=== PATIENT | female | born 1995 | race Caucasian/White ===

== ENCOUNTER 2018-08-05 20:18 | Inpatient (IN) | END 2018-08-07 17:00 | disposition home or self-care (01) | DRG 832 ==

== ENCOUNTER 2018-08-24 12:23 | Inpatient (IN) | payer OTHER ==
[~2018-08-24] VITALS: Ht 154.9 cm; Wt 66.4 kg
[~2018-08-24 12:23] MED LIST: PREN-29 PO
[2018-08-24 12:45] VITALS: Ht 154.9 cm; Wt 66.4 kg
[2018-08-24 12:46] VITALS: BP 129/78; PULSE 81; RESP 17
[2018-08-24] MEDS ORDERED: ACETAMINOPHEN 325 MG TAB PO PRN (17:00)
--- NOTE | 2018-08-24 17:24 | PN ---
Triage Information Date/Time Aug 24, 2018 at 15:20 Reason for visit: Elevated Blood pressure Weeks of Gestation 32 weeks and 2 days /Para Diabetes: none Hypertention: none Additional information 23 years old with IUP at 32 weeks and 2 days was sent from the clinic today due to slightly elevated diastolic BP noted in the office Denies any LOF, vaginal bleeding, decreased movement or contraction Denies any headache, blurred vsion,, epigastric pain or RUQ pain . Objective Vital Signs Date Temp Pulse Resp B/P (MAP) Pulse Ox O2 O2 Flow FiO2 Time Delivery Rate 08/24/18 98.7 81 17 129/78 Room Air 12:46 (95) Heart Rate Comments Recurrent variables noted with recovery over 45 seconds Cat 2 tracing Contractions: None Results/Medications Result Diagram: 08/24/18 1321 08/24/18 1321 Results 24 hrs Laboratory Tests Test 08/24/18 13:00 08/24/18 13:21 Urine Color YELLOW Urine Clarity CLOUDY A Urine pH 5.0 Urine Specific [place] 1.021 Urine Ketones NEGATIVE Urine Nitrite NEGATIVE Urine Bilirubin NEGATIVE Urine Urobilinogen 1+ H Urine Leukocyte Esterase 3+ H Urine Microscopic RBC 57 H Urine Microscopic WBC > 182 H Urine Squamous Epithelial Cells MANY A Urine Bacteria FEW A Urine Mucus FEW A Urine Hemoglobin 1+ H Urine Glucose NEGATIVE Urine Total Protein NEGATIVE White Blood Count 5.9 Red Blood Count 3.83 L Hemoglobin 10.2 L Hematocrit 31.6 L Mean Corpuscular Volume 82.5 Mean Corpuscular Hemoglobin 26.6 L Mean Corpuscular Hemoglobin Concent 32.3 Red Cell Distribution Width 12.8 Platelet Count 241 Mean Platelet Volume 10.9 H Immature Granulocytes % 2.700 H Neutrophils % 57.1 Lymphocytes % 32.0 Monocytes % 7.2 Eosinophils % 0.7 Basophils % 0.3 Nucleated Red Blood Cells % 0.7 H Immature Granulocytes # 0.160 H Neutrophils # 3.3 Lymphocytes # 1.9 Monocytes # 0.4 Eosinophils # 0.0 Basophils # 0.0 Nucleated Red Blood Cells # 0.0 Prothrombin Time 11.0 L Prothrombin Time Ratio 0.9 INR International Normalized Ratio 0.78 Activated Partial Thromboplast Time 27.4 Sodium Level 138 Potassium Level 4.4 Chloride Level 107 Carbon Dioxide Level 23 Anion Gap 8 Blood Urea Nitrogen 12 Creatinine 0.80 Est Glomerular Filtrat Rate mL/min > 60 Glucose Level 87 Uric Acid 5.3 Calcium Level 8.6 Total Bilirubin 0.0 L Direct Bilirubin 0.00 Indirect Bilirubin 0.0 Aspartate Amino Transf (AST/SGOT) 25 Alanine Aminotransferase (ALT/SGPT) 23 Alkaline Phosphatase 258 H Total Protein 6.2 Albumin 3.1 L Globulin 3.10 Albumin/Globulin Ratio 1.00 Medications Current Medications Lactated Ringer's 1,000 ml @ 75 mls/hr [id number] IV ; Start 08/24/18 at 16:51 Acetaminophen (Tylenol Tab) 650 mg Q4H PRN PO MILD PAIN(1-3)OR ELEVATED TEMP; Start 08/24/18 at 17:00 Cephalexin (Keflex) 500 mg TID PO ; Start 08/24/18 at 21:00 Prenat Multivit/ [place]/Iron/Folic Ac () 1 tab DAILY PO ; Start 08/25/18 at 09:00 Imaging Results PROCEDURE: US OB biophysical profile. CLINICAL INDICATION: decreased movements, decelerations TECHNIQUE: Multiple sonographic images of the pelvis were obtained. The images were reviewed on a PACS workstation. COMPARISON: US PELVIS 08/05/2018 FINDINGS: There is a single live intrauterine gestation. Cardiac activity is present with 161 beats per minute. There is a vertex presentation. The placenta is posterior. There is no evidence of placental abruption. There is a normal amount of amniotic fluid with an TERENCE = 11.4 cm. Biophysical profile: movement 2/2 tone 2/2. breathing 2/2 TERENCE 2/2 Total 8/8 RPTAT: AA . IMPRESSION: Normal biophysical profile. . PROCEDURE: Obstetrical ultrasound. CLINICAL INDICATION: , evaluation. Pelvic pain. TECHNIQUE: Transabdominal sonographic images of the uterus obtained after first trimester, greater than 14 weeks gestation. Single intrauterine gestation present. Complete anatomic survey is not performed in this ex amination; if needed an additional dedicated examination can be performed for complete anatomic survey. COMPARISON: US PELVIS 08/24/2018 FINDINGS: Single intrauterine gestation. There is a cephalic presentation. Measurements were made in order to determine age. The results are as fo llows: BPD = 32 weeks 2 day(s) HC = 31 weeks 6 day(s) AC = 30 weeks 0 day(s) FL = 30 weeks 2 day(s) TERENCE (cm) = not measured Heart rate = 146 beats per minute The placenta is posterior. There is no evidence for an abruption or placenta previa. Ovaries are not visualized. IMPRESSION: Single intrauterine gestation of approximately 31 weeks 1 days by ultrasound criteria. [place] estimated weight = 1580 g; 4.5 percentile for gestational age of 32 weeks 2 days. RPTAT: AADD Disposition: Admit Assessment/Plan IUP at 32 weeks and 2 days Borderline elevated diastolic blood pressure noted during office visit. Patient was sent for rule out PIH. Patient denies any symptoms and serial blood pressure here in triage did not show elevated blood pressure in the range of preeclampsia. Patient was asymptomatic and PIH panel was negative. However during monitoring recurrent variable deceleration noted was consistent with category 2 tracing Ultrasound consistent with IUGR estimated weight less than 4.5 percentile, Patient will be admitted to the hospital for prolonged monitoring primary OB attending Dr. Alicia is aware. Consider steriods and perinatology/neonatology consultation Plan of care discussed with the patient Admitted to antepartum service Continuous monitoring BASHIR DEVI MD Aug 24, 2018 17:24
[2018-08-24] MEDS: LACTATED RINGER'S 1,000 ML IV SCH (18:32)
[2018-08-24] MEDS: BETAMET NA PHOS/AC(6 MG/ML) 2 ML INJ SYG IM SCH (18:33)
[2018-08-24] MEDS: CEPHALEXIN 500 MG CAP PO SCH (21:54)
--- NOTE | 2018-08-25 01:47 | CONS ---
DATE OF ADMISSION: 08/24/2018 DATE OF CONSULTATION: 08/24/2018 I received a phone call from Dr. Alicia about a patient who was admitted for increased blood pres sure. Dr. Neves evaluated the patient and was concerned about the strip. I did review the strip. There are ____ of variables; however, in the context of overall strip, it is reassuring. I do recom mend that TERENCE to be checked and again if any further question or consult intended or necessary, pleas e contact me for a full consult. Dictated By: AMERICA RANDOLPH MD ST/NTS Conf#: [id number] DID#: [id number]
[2018-08-25] MEDS: LACTATED RINGER'S 1,000 ML IV SCH ×2 (06:07→19:44)
[2018-08-25] MEDS: BETAMET NA PHOS/AC(6 MG/ML) 2 ML INJ SYG IM SCH (06:07)
--- NOTE | 2018-08-25 08:17 | HP ---
Date/Time of Note Date/Time of Note DATE: 08/25/18 TIME: 08:09 OB - History Hx of Present Free Text/Dictation 23 YO with IUP at 32.3 weeks. she was referred to L&D due to elevated BP in office. she denies VB, LOF per vagina or UCs. she reports good FM. she denies headache, visual changes or RUQ pain. she has normal BPs in L&D, but BPs were checked in the bed and not in sitting position. BPs in hospital are higher than her baseline during PNC. she has normal labs and already had steroids. her previous was complicated by h/o HELLP syndrome at 33 weeks. she had c/s. this is complicated by IUGR, elevated inhibin and hypothyroidism. NST is overall reassuring and i am comfortable doing NST and not continuous monitoring. Care: Good Care Ultrasounds: Normal mid trimester US Obstetrical Complications: Growth Restriction, Other (elevated inhibin) Medical Complications: Other (hypothyroid) Past Family/Social History * Past Medical, Surgical, Family and Obstetric Histories reviewed from chart. OB Admission Exam Vital Signs Vital Signs Vital Signs Date Temp Pulse Resp B/P (MAP) Pulse Ox O2 O2 Flow FiO2 Time Delivery Rate 08/24/18 98.7 81 17 129/78 Room Air 12:46 (95) Physical Exam HEENT: WNL Heart: Rhythm Normal Lungs: Clear, Equal Abdomen: WNL Extremities: Normal Reflexes: Normal Last 72 hours Lab Results CBC & BMP 08/24/18 13:21 Liver Function Test 08/24/18 13:21 Alanine Aminotransferase (ALT/SGPT) 23 Albumin 3.1 L Alkaline Phosphatase 258 H Aspartate Amino Transf (AST/SGOT) 25 Direct Bilirubin 0.00 Total Protein 6.2 OB Assessment/Plan Other Assessment: IUP at 32.3 weeks IUGR r/o Preeclampsia Elevated inhibin h/o HELLP and C/S with previous Other plan: check BPs in sitting position 24 hour urine collection SCARLETT THOMAS MD Aug 25, 2018 08:17
[2018-08-25] MEDS ORDERED: PRENATAL VITAMIN PO SCH (09:00)
[2018-08-25] MEDS: PRENATAL VITAMIN PO SCH (09:19)
[2018-08-25] MEDS: CEPHALEXIN 500 MG CAP PO SCH ×2 (09:20→19:43)
[2018-08-25] MEDS: ASPIRIN (EC) 81 MG TAB PO SCH (11:35)
[2018-08-26] MEDS: CEPHALEXIN 500 MG CAP PO SCH ×4 (00:24→21:13)
[2018-08-26] MEDS: ASPIRIN (EC) 81 MG TAB PO SCH (09:22)
[2018-08-26] MEDS: PRENATAL VITAMIN PO SCH (09:22)
[2018-08-26] MEDS: LACTATED RINGER'S 1,000 ML IV SCH ×2 (09:22→19:54)
--- NOTE | 2018-08-26 15:53 | PN ---
Date/Time of Note Date/Time of Note DATE: 08/26/18 TIME: 15:49 OB Subjective Subjective Subjective Patient denies any headache, blurred vision, epigastric pain or right upper q uadrant pain. I was called by RN due to occasional subtle decelerations and heart tracing. OB Objective Objective Objective General appearance: Oriented x4 does not appear to be in acute distress Abdomen: Soft, gravid, fundal height consider gestational age NST reviewed. There are episodes of subtle decelerations recurrent, with intermittent good variability and acceleration consistent with category 2 tracing BPP requested VS - Last 72 Hours, by Label Date Temp Pulse Resp B/P (MAP) Pulse Ox O2 O2 Flow FiO2 Time Delivery Rate 08/24/18 98.7 81 17 129/78 Room Air 12:46 (95) Laboratory Tests Test 08/25/18 06:07 08/25/18 16:07 08/26/18 05:52 Lab Scanned Report [facility] [id number] Urine Random Creatinine 55.25 mg/dl Urine Collection 24 hrs Duration Urine Total Volume 24 1925 ml/24hrs Hours Urine Creatinine Timed 24 hrs Creatinine Clearance 92.3 mls/min Urine Total Volume 1925 mls (Protein) Urine Total Protein 24 693.0 mg/24hrs Hour White Blood Count 9.2 10^3/ul Red Blood Count 3.46 10^6/ul Hemoglobin 9.1 g/dl Hematocrit 28.8 % Mean Corpuscular Volume 83.2 fl Mean Corpuscular 26.3 pg Hemoglobin Mean Corpuscular 31.6 g/dl Hemoglobin Concent Red Cell Distribution 12.9 % Width Platelet Count 258 10^3/UL Mean Platelet Volume 10.8 fl Immature Granulocytes % 4.100 % Neutrophils % 64.7 % Lymphocytes % 25.2 % Monocytes % 5.8 % Eosinophils % 0.0 % Basophils % 0.2 % Nucleated Red Blood 1.4 /100WBC Cells % Immature Granulocytes # 0.380 10^3/ul Neutrophils # 6.0 10^3/ul Lymphocytes # 2.3 10^3/ul Monocytes # 0.5 10^3/ul Eosinophils # 0.0 10^3/ul Basophils # 0.0 10^3/ul Nucleated Red Blood 0.1 10^3/ul Cells # Sodium Level 137 mmol/L Potassium Level 4.4 mmol/L Chloride Level 110 mmol/L Carbon Dioxide Level 23 mmol/L Anion Gap 4 Blood Urea Nitrogen 11 mg/dl Creatinine 0.70 mg/dl Est Glomerular Filtrat > 60 mL/min Rate mL/min Glucose Level 103 mg/dl Calcium Level 8.3 mg/dl Total Bilirubin 0.0 mg/dl Direct Bilirubin 0.00 mg/dl Indirect Bilirubin 0.0 mg/dl Aspartate Amino 26 IU/L Transf (AST/SGOT) Alanine 22 IU/L Aminotransferase (ALT/SG PT) Alkaline Phosphatase 232 IU/L Total Protein 5.6 g/dl Albumin 2.7 g/dl Globulin 2.90 g/dl Albumin/Globulin Ratio 0.93 OB Assessment/Plan Other Assessment: Hospital day #2 Presented for rule out PIH from the office. Blood pressures are all within normal limits. PIH labs are negative. There is proteinuria, he is on only proteinuria does not meet the criteria for preeclampsia at this time UTI, receiving treatment with Keflex Recurrent subtle deceleration consistent with category 2 tracing, Ultrasound shows IUGR, estimated weight less than 4.5 percentile Cannot rule out placental insufficiency Recommended to have a Doppler of umbilical artery NICU and kylah consilt. Consider Reconsult with perinatologist BASHIR DEVI MD Aug 26, 2018 15:53
[2018-08-27] MEDS: CEPHALEXIN 500 MG CAP PO SCH (09:14)
[2018-08-27] MEDS: ASPIRIN (EC) 81 MG TAB PO SCH (09:14)
[2018-08-27] MEDS: LACTATED RINGER'S 1,000 ML IV SCH (09:14)
[2018-08-27] MEDS: PRENATAL VITAMIN PO SCH (09:14)
[2018-08-27] MEDS ORDERED: LACTATED RINGER'S 1,000 ML IV SCH (11:47)
[2018-08-27] MEDS ORDERED: CITRIC ACID/NA CITRATE 30 ML CUP PO ONE (12:00)
[2018-08-27] MEDS ORDERED: ONDANSETRON 4 MG INJ IV STA (12:00)
[2018-08-27] MEDS ORDERED: OXYTOCIN 30 UNITS/LR 500 ML IV PRN ×2 (12:00→13:00)
[2018-08-27] MEDS ORDERED: MISOPROSTOL 200 MCG TAB PR PRN ×2 (12:00→13:00)
[2018-08-27] MEDS ORDERED: METOCLOPRAMIDE 10 MG INJ IV ONE (12:00)
[2018-08-27] MEDS ORDERED: FAMOTIDINE 20 MG INJ IV ONE (12:00)
[2018-08-27] MEDS ORDERED: CEFAZOLIN 2 GM/50 ML (PMX) 50 ML IVPB SCH (12:00)
[2018-08-27] MEDS ORDERED: CARBOPROST 250 MCG INJ IM PRN ×2 (12:00→13:00)
--- NOTE | 2018-08-27 12:41 | PREAC ---
Date/Time of Note Date/Time of Note DATE: 08/27/18 TIME: 12:40 Anesthesia Eval and Record Evaluation Time Pre-Procedure Interview DATE: 08/27/18 TIME: 12:40 Age 23 Sex female NPO: 8 hrs Preoperative diagnosis Planned procedure repeat cs Past Medical History Past Medical History: Includes Cardio: HTN Surgery & Anesthesia Issues No known issue Meds Anticoagulation: No Beta Valentín within 24 hr: No Reason Beta Valentín not given: Pt. not on B-Valentín Reported Medications Vit-Fe Fumarate-FA* (Mathieu Tablet*) 1 Tab Tablet, 1 TAB PO DAILY, TAB 07/18/14 Current Medications Lactated Ringer's 1,000 ml @ 125 mls/hr Q8H IV ; Start 08/27/18 at 11:47 Cefazolin Sodium/ Dextrose 50 ml @ 100 mls/hr ONCE IVPB ; Start 08/27/18 at 12:00 Oxytocin/Lactated Ringer's 500 ml @ 125 mls/hr POST IV ; Start 08/27/18 at 12:00 Oxytocin/Lactated Ringer's 500 ml @ 0 mls/hr ONCE PRN IV VAGINAL BLEEDING; Start 08/27/18 at 12:00 Carboprost Tromethamine (Hemabate) 250 mcg ONCE PRN IM VAGINAL BLEEDING; Start 08/27/18 at 12:00 Misoprostol (Cytotec) 1,000 mcg ONCE PRN AR VAGINAL BLEEDING; Start 08/27/18 at 12:00 Meds reviewed: Yes Allergies Coded Allergies: No Known Allergy (Unverified , 08/05/18) Allergies Reviewed: Yes Labs/Studies Labs Reviewed: Reviewed by anesthesiologist Result Diagram: 08/27/18 0544 08/27/18 0544 Laboratory Tests 08/27/18 05:44 test: Positive Pre-procedure Exam Last vitals Vital Signs Date Temp Pulse Resp B/P (MAP) Pulse Ox O2 O2 Flow FiO2 Time Delivery Rate 08/24/18 98.7 81 17 129/78 Room Air 12:46 (95) Airway: Adequate mouth opening, Adequate thyromental dist Mallampati: Mallampati II Teeth: Normal Lung: Normal Heart: Normal ASA Physical Status ASA physical status: 2 Emergency: None Planned Anesthetic Neuraxial: Spinal Pre-operative Attestations Prior to commencing anesthesia and surgery, the patient was re-evaluated, there was verification of: *The patient's identity *The results of appropriate recent lab work and preoperative vital signs *The above evaluation not changing prior to induction *Anesthetic plan, risk benefits, alternative and complications discussed with patient/family; questions answered; patient/family understands, accepts and wishes to proceed. JOSSIE SIEGEL Aug 27, 2018 12:41
--- NOTE | 2018-08-27 12:42 | HP ---
Date/Time of Note Date/Time of Note DATE: 08/27/18 TIME: 12:33 OB - History Hx of Present Free Text/Dictation 23 YO with EDC 10/17/2018 with IUP at 32.5 weeks. she was admitted to hospital for preeclampsia, IUGR, Variable decelerations and h/o HELLP syndrome with previous . NST reveals worsening repeated prolonged and variable decelerations. Her BPs today are also higher than previous days, although still in mild range. the intention was to prolong the , but we need to proceed with repeat delivery due to recurrent decelerations. I discussed with the patient the risks, benefits, indications, and alternatives of procedure including but not limited to risks of infection, bleeding, damage to other organs, bowel, bladder, hernia formation, scar formation, possibility of blood transfusion, possible need for emergency hysterectomy and risks of prematurity including permanent physical or mental disabilities or . She was allowed to ask questions. All her questions were answered. Informed consent has been obtained. Care: Good Care Ultrasounds: Normal mid trimester US Obstetrical Complications: Pre-eclampsia, Growth Restriction Medical Complications: None Past Family/Social History * Past Medical, Surgical, Family and Obstetric Histories reviewed from chart. OB Admission Exam Vital Signs Vital Signs Vital Signs Date Temp Pulse Resp B/P (MAP) Pulse Ox O2 O2 Flow FiO2 Time Delivery Rate 08/24/18 98.7 81 17 129/78 Room Air 12:46 (95) Physical Exam HEENT: WNL Heart: Rhythm Normal Lungs: Clear, Equal Abdomen: WNL Extremities: Normal Reflexes: Normal Last 72 hours Lab Results CBC & BMP 08/24/18 13:21 08/26/18 05:52 08/27/18 05:44 Liver Function Test 08/24/18 13:21 08/26/18 05:52 08/27/18 05:44 Alanine Aminotransferase (ALT/SGPT) 23 22 29 Albumin 3.1 L 2.7 L 2.5 L Alkaline Phosphatase 258 H 232 H 212 H Aspartate Amino Transf (AST/SGOT) 25 26 26 Direct Bilirubin 0.00 0.00 0.00 Total Protein 6.2 5.6 L 5.3 L OB Assessment/Plan Other Assessment: IUP 32.5 weeks Preeclampsia Elevated Inhibin IUGR Recurrent worsening prolonged decelerations h/o previous for HELLP syndrome at 33 weeks Plan: Section SCARLETT THOMAS MD Aug 27, 2018 12:42
[2018-08-27] MEDS ORDERED: LACTATED RINGER'S 1,000 ML IV* SCH (12:43)
[2018-08-27] MEDS ORDERED: DIPHENHYDRAMINE 50 MG INJ IV PRN ×3 (13:00)
[2018-08-27] MEDS ORDERED: WITCH HAZEL/GLYCERIN PAD PR PRN (13:00)
[2018-08-27] MEDS ORDERED: SENNA/DOCUSATE NA (8.6MG/50MG) TAB PO PRN (13:00)
[2018-08-27] MEDS ORDERED: FENTAnyl 50 MCG/ML VIAL IV PRN ×2 (13:00)
[2018-08-27] MEDS ORDERED: HYDROmorphONE 0.5 MG/0.5 ML SYG IV PRN ×2 (13:00)
[2018-08-27] MEDS ORDERED: KETOROLAC 30 MG INJ IV PRN ×2 (13:00)
[2018-08-27] MEDS ORDERED: NA PHOSPHATE/BIPHOS 133 ML ENEMA PR PRN (13:00)
[2018-08-27] MEDS ORDERED: ONDANSETRON 4 MG TAB PO PRN (13:00)
[2018-08-27] MEDS ORDERED: DIPHENHYDRAMINE 25 MG CAP PO PRN (13:00)
[2018-08-27] MEDS ORDERED: HYDROmorphONE 1 MG/5 ML IV SYRINGE IV PRN ×2 (13:00)
[2018-08-27] MEDS ORDERED: ONDANSETRON 4 MG INJ IV PRN ×2 (13:00)
[2018-08-27] MEDS ORDERED: DIBUCAINE 1% 30 GM OINT TOP PRN (13:00)
[2018-08-27] MEDS ORDERED: ALBUTEROL 0.083% (NEB) 2.5 MG/3 ML AMP HHN PRN (13:00)
[2018-08-27] MEDS ORDERED: LANOLIN HPA 1 PKT TOP PRN (13:00)
[2018-08-27] MEDS ORDERED: METOCLOPRAMIDE 10 MG INJ IV PRN (13:00)
[2018-08-27] MEDS ORDERED: NALOXONE (0.4 MG/ML) INJ IV PRN (13:00)
[2018-08-27] MEDS ORDERED: HYDROCODONE/APAP (5/325) TAB PO PRN ×2 (13:00)
[2018-08-27] MEDS ORDERED: BENZOCAINE 20% 56 ML SPRAY TOP PRN (13:00)
[2018-08-27] MEDS ORDERED: MAGNESIUM HYDROXIDE 30ML CUP PO PRN (13:00)
--- NOTE | 2018-08-27 14:20 | OPR ---
Date/Time of Note Date/Time of Note DATE: 08/27/18 TIME: 14:16 Operative Report Procedure Date: Aug 27, 2018 Preoperative Diagnosis IUP 32.5 weeks Preeclampsia IUGR Repetitive prolonged decelerations h/o prior delivery due to HELLP syndrome Postoperative Diagnosis same Operation/Procedure Performed Repeat delivery Surgeon Christiano Alicia MD Gas Engine Operator Edmund Verdin MD Anesthesia Type: spinal Estimated Blood Loss: other (700 ml) Transfusion none Specimen Placenta Grafts/Implants none Tubes/Drains Ma Cath Complications none Pt Condition Post Procedure: stable Disposition: PACU Procedure Description COMPLICATIONS: None. The risks, benefits, indications, alternatives of procedure including, but not limited to risk of infection, bleeding, damage to other organs, bowel, bladder, hernia formation, scar formation, possibility of blood transfusions. She was allowed to ask questions. All her questions were answered. Informed consent was obtained. DESCRIPTION OF PROCEDURE: She was taken to the operating room. Spinal anesthesia was induced. She was prepped and draped in the usual sterile fashion. Surgical time out one. Anesthesia was tested to be adequate. With permission from anesthesiologist, a knife was used to make a Pfannenstiel skin incision. The incision was taken down in layers. The fascia was cut, undermined and from the underlying muscle using sharp and blunt dissection. All the bleeders were cauterized. Peritoneum was entered bluntly. A low transverse incision was developed over the uterus. Amniotic fluid was clear and adequate. A viable in vertex presentation was delivered without any difficulty. The cord was clamped and cut, handed to awaiting team. Placenta was then delivered. Uterus was exteriorized, wrapped around a moist lap. Inside uterus was cleaned using a dry lap. All residual membranes were removed. The uterine incision was then closed using #1 Monocryl in 2 layers. The uterus was inserted back inside the abdominal cavity. Irrigation was done carefully. Careful evaluation of the uterine incision revealed no further bleeding. The tubal ligation sites were evaluated carefully. There was no bleeding. The peritoneum and rectus muscles and fascia were evaluated. All bleeders cauterized. Peritoneum was closed using 2-0 Monocryl. At this time, the count was correct. Rectus muscle was reapproximated using 2-0 Monocryl. Rectus fascia was closed using #1 Vicryl. Subcutaneous tissue was cleaned and irrigated. All bleeders cauterized and the skin closed using Insorb. All counts correct. CHRISTIANO ALICIA MD Aug 27, 2018 14:20
[2018-08-27] MEDS: OXYTOCIN 30 UNITS/LR 500 ML IV SCH ×2 (14:50→20:20)
[2018-08-27] MEDS: LABETALOL 200 MG TAB PO PRN (15:44)
[2018-08-27] MEDS ORDERED: MAGNESIUM SULFATE 4 GM/100 ML 100 ML IV ONE (16:30)
--- NOTE | 2018-08-27 16:45 | CONS ---
Date/Time of Note Date/Time of Note DATE: 08/27/18 TIME: 16:42 Assessment/Plan Assessment/Plan Assessment/Plan 23 yo female with pre-eclampsia s/p C section today, now with asymptomatic hypertension - Expected to have some acute hypertension post surgery which will resolve on its own. Not need to treat based off of the number now. 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 I will write for 0.1 mg PO clonidine now Result Diagram: 08/27/18 0544 08/27/18 0544 Results 24hrs Laboratory Tests Test 08/27/18 05:42 08/27/18 05:44 08/27/18 14:03 Hepatitis B Surface Antigen NEGATIVE White Blood Count 8.5 Red Blood Count 3.37 L Hemoglobin 9.0 L Hematocrit 28.6 L Mean Corpuscular Volume 84.9 Mean Corpuscular Hemoglobin 26.7 L Mean Corpuscular 31.5 L Hemoglobin Concent Red Cell Distribution Width 13.1 Platelet Count 245 Mean Platelet Volume 11.2 H Immature Granulocytes % 9.300 H Neutrophils % Segmented Neutrophils 58 % (Manual) Band Neutrophils % (Manual) 2 Lymphocytes % Lymphocytes % (Manual) 37 Monocytes % Monocytes % (Manual) 2 Eosinophils % Basophils % Myelocytes % (Manual) 1 H Nucleated Red Blood Cells % 5 H Immature Granulocytes # 0.790 H Neutrophils # Neutrophils # (Manual) 4.9 Band Neutrophils # 0.1 Lymphocytes (Manual) 3.1 H Lymphocytes # Monocytes # Monocytes # (Manual) 0.1 L Eosinophils # Basophils # Myelocytes # 0.0 Nucleated Red Blood Cells # Platelet Estimate NORMAL Giant Platelets 2 H Polychromasia 1+ Anisocytosis 1+ Microcytosis 1+ Sodium Level 138 Potassium Level 4.3 Chloride Level 110 Carbon Dioxide Level 24 Anion Gap 4 L Blood Urea Nitrogen 12 Creatinine 0.69 Est Glomerular Filtrat > 60 Rate mL/min Glucose Level 82 Calcium Level 8.1 L Total Bilirubin 0.0 L Direct Bilirubin 0.00 Indirect Bilirubin 0.0 Aspartate Amino 26 Transf (AST/SGOT) Alanine 29 Aminotransferase (ALT/SGPT) Alkaline Phosphatase 212 H Total Protein 5.3 L Albumin 2.5 L Globulin 2.80 Albumin/Globulin Ratio 0.89 Blood Gas Specimen Source CBV Arterial Blood Date Drawn 08/27/2018 2:00:42 PM Arterial Blood Gas CORD Puncture Site Cam Test N/A Cord Blood Carboxyhemoglobin 2.1 Cord Arterial Blood pH 7.309 Cord Arterial Blood PCO2 50.0 Cord Arterial Blood PO2 24.1 Cord Arterial Blood HCO3 24.6 Cord Arterial Blood -2.3 Base Excess POC Cord Arterial Blood O2 54.3 Sat Cord Arterial Blood 14.8 Hemoglobin Cord Arterial 52.9 Blood Oxyhemoglobin Cord Arterial 1.6 Blood Methemoglobin Cord Venous Blood pH 7.331 Cord Venous Blood PCO2 46.3 Cord Venous Blood PO2 23.9 Cord Venous Blood HCO3 23.9 Cord Venous Blood Base -2.3 Excess POC Cord Venous Blood 59.2 Oxygen Sat Cord Venous Blood Hemoglobin 14.2 Cord Venous 57.1 Blood Oxyhemoglobin Cord Venous 1.4 Blood Methemoglobin Blood Gas A-a O2 70.4 Differential Blood Gas Temperature 37.0 Blood Gas Modality ROOM AIR FiO2 21.0 Blood Gas Critical Value Ca LYNCH RN Read Back Blood Gas Notified Whom SS Blood Gas Notified Time 08/27/2018 2:10:31 PM Consultation Date/Type/Reason Admit Date/Time Aug 24, 2018 at 15:20 Hx of Present Illness 23 yo female wtih pre-eclampsia s/p C section today. Consulted for hypertension Patient has been given labetalol and hydralazine. Despite this BP currently is 170s/100s. She has no symptoms at all. Resting comfortably Past Medical History Medical History: no pertinent history Medications Current Medications Oxytocin/Lactated Ringer's 500 ml @ 125 mls/hr POST IV ; Start 08/27/18 at 12:00 Naloxone HCl (Narcan) 0.1 mg Q2M PRN IV DECREASED REPIRATORY RATE; Start 08/27/18 at 13:00; Stop 08/28/18 at 12:59 Ketorolac Tromethamine (Toradol) 30 mg Q6H PRN IV PAIN; Start 08/27/18 at 13:00; Stop 08/28/18 at 12:59 Hydromorphone HCl (Dilaudid) 0.2 mg Q3H PRN IV PAIN LEVEL 1-5; Start 08/27/18 at 13:00; Stop 08/28/18 at 12:59 Hydromorphone HCl (Dilaudid) 0.4 mg Q3H PRN IV PAIN LEVEL 6-10; Start 08/27/18 at 13:00; Stop 08/28/18 at 12:59 Diphenhydramine HCl (Benadryl) 25 mg Q6H PRN IV ITCHING; Start 08/27/18 at 13:00; Stop 08/28/18 at 12:59 Ondansetron HCl (Zofran Inj) 4 mg Q6H PRN IV NAUSEA AND/OR VOMITING; Start 08/27/18 at 13:00; Stop 08/28/18 at 12:59 Hydromorphone HCl (Dilaudid) 0.2 mg PACU PRN IV MILD PAIN LEVEL 1-3; Start 08/27/18 at 13:00; Stop 08/27/18 at 17:00 Hydromorphone HCl (Dilaudid) 0.4 mg PACU PRN IV MODERATE PAIN LEVEL 4-6; Start 08/27/18 at 13:00; Stop 08/27/18 at 17:00 Fentanyl (Sublimaze) 25 mcg PACU ORDER PRN IV MILD PAIN LEVEL 1-3; Start 08/27/18 at 13:00; Stop 08/27/18 at 17:00 Fentanyl (Sublimaze) 50 mcg PACU ORDER PRN IV MODERATE PAIN LEVEL 4-6 Last administered on 08/27/18at 14:28; Admin Dose 50 MCG; Start 08/27/18 at 13:00; Stop 08/27/18 at 17:00 Ketorolac Tromethamine (Toradol) 30 mg PACU ORDER PRN IV PAIN Last administered on 08/27/18at 15:23; Admin Dose 30 MG; Start 08/27/18 at 13:00; Stop 08/27/18 at 17:00 Ondansetron HCl (Zofran Inj) 4 mg PACU ORDER PRN IV NAUSEA AND/OR VOMITING; Start 08/27/18 at 13:00; Stop 08/27/18 at 17:00 Metoclopramide HCl (Reglan) 10 mg PACU ORDER PRN IV NAUSEA AND/OR VOMITING; Start 08/27/18 at 13:00; Stop 08/27/18 at 17:00 Albuterol (Proventil 0.083% (Neb)) 2.5 mg PACU ORDER PRN HHN WHEEZING; Start 08/27/18 at 13:00; Stop 08/27/18 at 17:00 Diphenhydramine HCl (Benadryl) 25 mg PACU ORDER PRN IV PRURITUS; Start 08/27/18 at 13:00; Stop 08/27/18 at 17:00 Lactated Ringer's 1,000 ml @ 125 mls/hr Q8H IV* ; Start 08/27/18 at 12:43 Ibuprofen (Motrin) 600 mg Q6 PO ; Start 08/28/18 at 18:00 Acetaminophen/ Hydrocodone Bitart ([facility] (5/325)) 1 tab Q4H PRN PO PAIN LEVEL 1-5; Start 08/27/18 at 13:00 Acetaminophen/ Hydrocodone Bitart ([facility] (5/325)) 2 tab Q4H PRN PO PAIN LEVEL 6-10; Start 08/27/18 at 13:00 Ondansetron HCl (Zofran Inj) 4 mg Q6H PRN IV NAUSEA AND/OR VOMITING; Start 08/28/18 at 13:00 Ondansetron HCl (Zofran Tab) 4 mg Q6H PRN PO NAUSEA AND/OR VOMITING; Start 08/27/18 at 13:00 Diphenhydramine HCl (Benadryl) 25 mg Q6H PRN PO PRURITUS; Start 08/27/18 at 13:00 Diphenhydramine HCl (Benadryl) 25 mg Q6H PRN IV PRURITUS; Start 08/27/18 at 13:00 Senna/Docusate Sodium (Senokot-S) 1 tab BID PO ; Start 08/27/18 at 21:00 Senna/Docusate Sodium (Senokot-S) 1 tab BID PRN PO CONSTIPATION; Start 08/27/18 at 13:00 Magnesium Hydroxide (Milk Of Mag) 30 ml Q12H PRN PO CONSTIPATION; Start 08/27/18 at 13:00 Sodium Biphosphate/ Sodium Phosphate (Fleet Enema) 133 ml DAILY PRN [place] CONSTIPATION; Start 08/27/18 at 13:00 Witch Mee/ Glycerin (Tucks Pads) 1 pad BEDSIDE MEDICATION PRN [place] HEMORRHOID/EPISIOTMY PAIN; Start 08/27/18 at 13:00 Benzocaine (Dermoplast [place]) 1 spray BEDSIDE MEDICATION PRN TOP HEMORRHOID/EPISIOTMY PAIN; Start 08/27/18 at 13:00 Dibucaine (Nupercainal) 1 applic BEDSIDE MEDICATION PRN TOP HEMORRHOID /EPISIOTMY PAIN; Start 08/27/18 at 13:00 Lanolin (Lanolin Hpa) 1 applic BEDSIDE MEDICATION PRN TOP BEDSIDE FOR SAMI TO NIPPLES; Start 08/27/18 at 13:00 Measles/Mumps/ Rubella Vaccine Live (Mmr Ii Vaccine) 0.5 ml ONCE ONCE SC* ; Start 08/29/18 at 09:00; Stop 08/29/18 at 09:01 Diphtheria/ Tetanus/Acell Pertussis (Adacel) 0.5 ml ONCE ONCE IM* ; Start 08/29/18 at 09:00; Stop 08/29/18 at 09:01 Varicella Virus Vaccine Live (Varivax Vaccine With Diluent) 1,350 unit ONCE ONCE SC* ; Start 08/29/18 at 09:00; Stop 08/29/18 at 09:01 Oxytocin/Lactated Ringer's 500 ml @ 0 mls/hr ONCE PRN IV VAGINAL BLEEDING; Start 08/27/18 at 13:00 Carboprost Tromethamine (Hemabate) 250 mcg ONCE PRN IM VAGINAL BLEEDING; Start 08/27/18 at 13:00 Misoprostol (Cytotec) 1,000 mcg ONCE PRN [place] VAGINAL BLEEDING; Start 08/27/18 at 13:00 Labetalol HCl (Normodyne) 200 mg Q8H PRN PO SBP > 140 or DBP> 90 Last administered on 08/27/18at 15:44; Admin Dose 200 MG; Start 08/27/18 at 13:00 Hydralazine HCl (Apresoline) 50 mg Q8H PRN NGT SBP > 155 or DBP > 100 Last administered on 08/27/18at 15:12; Admin Dose 50 MG; Start 08/27/18 at 13:00 Magnesium Sulfate 100 ml @ 200 mls/hr ONCE ONCE IV ; Start 08/27/18 at 16:30; Stop 08/27/18 at 16:59; Status UNV Magnesium Sulfate 500 ml @ 50 mls/hr Q10H IV ; Start 08/27/18 at 16:30; Status UNV Allergies: Coded Allergies: No Known Allergy (Unverified , 08/05/18) Past Surgical History C section today Family History Significant Family History: no pertinent family hx Social History Alcohol Use: none Smoking Status: Never smoker Drug Use: none Exam/Review of Systems Vital Signs Vitals Vital Signs Date Temp Pulse Resp B/P (MAP) Pulse Ox O2 O2 Flow FiO2 Time Delivery Rate 08/24/18 98.7 81 17 129/78 Room Air 12:46 (95) Intake and Output 08/26/18 08/26/18 08/27/18 1515:00 23:00 07:00 IntakeIntake Total 1000 ml 1500 ml 625 ml OutputOutput Total 1750 ml 500 ml 800 ml BalanceBalance -750 ml 1000 ml -175 ml Exam Constitutional: alert, oriented, well developed Psych: no complaints, nl mood/affect Head: normocephalic, atraumatic Eyes: nl conjunctiva, EOMI, nl lids, nl sclera, PERRL ENMT: nl external ears & nose, nl lips & teeth, nl nasal mucosa & septum Neck: supple, non-tender Respiratory: clear to auscultation, normal air movement Cardiovascular: regular rate and rhythm, nl pulses Gastrointestinal: soft, nl liver, spleen, non-tender Musculoskeletal: nl extremities to inspection, nl gait and stance Extremities: normal pulses Neurological: DANCE HALL HOSTESS II-XII intact, nl mental status, nl speech, nl strength Skin: nl turgor; No rash or lesions Lymph: nl lymph nodes Medications Medications Current Medications Oxytocin/Lactated Ringer's 500 ml @ 125 mls/hr POST IV ; Start 08/27/18 at 12:00 Naloxone HCl (Narcan) 0.1 mg Q2M PRN IV DECREASED REPIRATORY RATE; Start 08/27/18 at 13:00; Stop 08/28/18 at 12:59 Ketorolac Tromethamine (Toradol) 30 mg Q6H PRN IV PAIN; Start 08/27/18 at 13:00; Stop 08/28/18 at 12:59 Hydromorphone HCl (Dilaudid) 0.2 mg Q3H PRN IV PAIN LEVEL 1-5; Start 08/27/18 at 13:00; Stop 08/28/18 at 12:59 Hydromorphone HCl (Dilaudid) 0.4 mg Q3H PRN IV PAIN LEVEL 6-10; Start 08/27/18 at 13:00; Stop 08/28/18 at 12:59 Diphenhydramine HCl (Benadryl) 25 mg Q6H PRN IV ITCHING; Start 08/27/18 at 13:00; Stop 08/28/18 at 12:59 Ondansetron HCl (Zofran Inj) 4 mg Q6H PRN IV NAUSEA AND/OR VOMITING; Start 08/27/18 at 13:00; Stop 08/28/18 at 12:59 Hydromorphone HCl (Dilaudid) 0.2 mg PACU PRN IV MILD PAIN LEVEL 1-3; Start 08/27/18 at 13:00; Stop 08/27/18 at 17:00 Hydromorphone HCl (Dilaudid) 0.4 mg PACU PRN IV MODERATE PAIN LEVEL 4-6; Start 08/27/18 at 13:00; Stop 08/27/18 at 17:00 Fentanyl (Sublimaze) 25 mcg PACU ORDER PRN IV MILD PAIN LEVEL 1-3; Start 08/27/18 at 13:00; Stop 08/27/18 at 17:00 Fentanyl (Sublimaze) 50 mcg PACU ORDER PRN IV MODERATE PAIN LEVEL 4-6 Last administered on 08/27/18at 14:28; Admin Dose 50 MCG; Start 08/27/18 at 13:00; Stop 08/27/18 at 17:00 Ketorolac Tromethamine (Toradol) 30 mg PACU ORDER PRN IV PAIN Last administered on 08/27/18at 15:23; Admin Dose 30 MG; Start 08/27/18 at 13:00; Stop 08/27/18 at 17:00 Ondansetron HCl (Zofran Inj) 4 mg PACU ORDER PRN IV NAUSEA AND/OR VOMITING; Start 08/27/18 at 13:00; Stop 08/27/18 at 17:00 Metoclopramide HCl (Reglan) 10 mg PACU ORDER PRN IV NAUSEA AND/OR VOMITING; Start 08/27/18 at 13:00; Stop 08/27/18 at 17:00 Albuterol (Proventil 0.083% (Neb)) 2.5 mg PACU ORDER PRN HHN WHEEZING; Start 08/27/18 at 13:00; Stop 08/27/18 at 17:00 Diphenhydramine HCl (Benadryl) 25 mg PACU ORDER PRN IV PRURITUS; Start 08/27/18 at 13:00; Stop 08/27/18 at 17:00 Lactated Ringer's 1,000 ml @ 125 mls/hr Q8H IV* ; Start 08/27/18 at 12:43 Ibuprofen (Motrin) 600 mg Q6 PO ; Start 08/28/18 at 18:00 Acetaminophen/ Hydrocodone Bitart ([facility] (5/325)) 1 tab Q4H PRN PO PAIN LEVEL 1-5; Start 08/27/18 at 13:00 Acetaminophen/ Hydrocodone Bitart ([facility] (5/325)) 2 tab Q4H PRN PO PAIN LEVEL 6-10; Start 08/27/18 at 13:00 Ondansetron HCl (Zofran Inj) 4 mg Q6H PRN IV NAUSEA AND/OR VOMITING; Start 08/28/18 at 13:00 Ondansetron HCl (Zofran Tab) 4 mg Q6H PRN PO NAUSEA AND/OR VOMITING; Start 08/27/18 at 13:00 Diphenhydramine HCl (Benadryl) 25 mg Q6H PRN PO PRURITUS; Start 08/27/18 at 13:00 Diphenhydramine HCl (Benadryl) 25 mg Q6H PRN IV PRURITUS; Start 08/27/18 at 13: 00 Senna/Docusate Sodium (Senokot-S) 1 tab BID PO ; Start 08/27/18 at 21:00 Senna/Docusate Sodium (Senokot-S) 1 tab BID PRN PO CONSTIPATION; Start 08/27/18 at 13:00 Magnesium Hydroxide (Milk Of Mag) 30 ml Q12H PRN PO CONSTIPATION; Start 08/27/18 at 13:00 Sodium Biphosphate/ Sodium Phosphate (Fleet Enema) 133 ml DAILY PRN [place] CONSTIPATION; Start 08/27/18 at 13:00 Witch Mee/ Glycerin (Tucks Pads) 1 pad BEDSIDE MEDICATION PRN [place] HEMORRHOID/EPISIOTMY PAIN; Start 08/27/18 at 13:00 Benzocaine (Dermoplast [place]) 1 spray BEDSIDE MEDICATION PRN TOP HEMORRHOID/EPISIOTMY PAIN; Start 08/27/18 at 13:00 Dibucaine (Nupercainal) 1 applic BEDSIDE MEDICATION PRN TOP HEMORRHOID/EPISIOTMY PAIN; Start 08/27/18 at 13:00 Lanolin (Lanolin Hpa) 1 applic BEDSIDE MEDICATION PRN TOP BEDSIDE FOR SAMI TO NIPPLES; Start 08/27/18 at 13:00 Measles/Mumps/ Rubella Vaccine Live (Mmr Ii Vaccine) 0.5 ml ONCE ONCE SC* ; Start 08/29/18 at 09:00; Stop 08/29/18 at 09:01 Diphtheria/ Tetanus/Acell Pertussis (Adacel) 0.5 ml ONCE ONCE IM* ; Start 08/29/18 at 09:00; Stop 08/29/18 at 09:01 Varicella Virus Vaccine Live (Varivax Vaccine With Diluent) 1,350 unit ONCE ONCE SC* ; Start 08/29/18 at 09:00; Stop 08/29/18 at 09:01 Oxytocin/Lactated Ringer's 500 ml @ 0 mls/hr ONCE PRN IV VAGINAL BLEEDING; Start 08/27/18 at 13:00 Carboprost Tromethamine (Hemabate) 250 mcg ONCE PRN IM VAGINAL BLEEDING; Start 08/27/18 at 13:00 Misoprostol (Cytotec) 1,000 mcg ONCE PRN [place] VAGINAL BLEEDING; Start 08/27/18 at 13:00 Labetalol HCl (Normodyne) 200 mg Q8H PRN PO SBP > 140 or DBP> 90 Last administered on 08/27/18at 15:44; Admin Dose 200 MG; Start 08/27/18 at 13:00 Hydralazine HCl (Apresoline) 50 mg Q8H PRN NGT SBP > 155 or DBP > 100 Last administered on 08/27/18at 15:12; Admin Dose 50 MG; Start 08/27/18 at 13:00 Magnesium Sulfate 100 ml @ 200 mls/hr ONCE ONCE IV ; Start 08/27/18 at 16:30; Stop 08/27/18 at 16:59; Status UNV Magnesium Sulfate 500 ml @ 50 mls/hr Q10H IV ; Start 08/27/18 at 16:30; Status UNV BEENA WILL MD Aug 27, 2018 16:45
--- NOTE | 2018-08-27 16:52 | PAC ---
Date/Time of Note Date/Time of Note DATE: 08/27/18 TIME: 16:52 Post-Anesthesia Notes Post-Anesthesia Note Last documented vital signs Vital Signs Date Temp Pulse Resp B/P (MAP) Pulse Ox O2 O2 Flow FiO2 Time Delivery Rate 08/24/18 98.7 81 17 129/78 Room Air 12:46 (95) Activity: WNL Respiratory function: WNL Cardiovascular function: WNL Mental status: Baseline Pain reasonably controlled: Yes Hydration appropriate: Yes Nausea/Vomiting absent: Yes JOSSIE SIEGEL Aug 27, 2018 16:52
[2018-08-27] MEDS: MAGNESIUM SULFATE 20 GM/500 ML 500 ML IV SCH (17:18)
[2018-08-27 20:40] VITALS: BP 126/85; PULSE 94; RESP 18
[2018-08-27 21:00] VITALS: BP 136/85; PULSE 84; RESP 18
[2018-08-27] MEDS: SENNA/DOCUSATE NA (8.6MG/50MG) TAB PO SCH (21:00)
[2018-08-27] MEDS: NIFEdipine (XL) 60 MG TAB PO SCH (21:41)
[2018-08-27 22:00] VITALS: BP 141/88; PULSE 85; RESP 20
[2018-08-27 23:00] VITALS: BP 131/79; PULSE 91; RESP 18
[2018-08-28] VITALS (14 sets, daily range): BP systolic 98–131; BP diastolic 55–87; PULSE 89–109; RESP 18–20
[2018-08-28] MEDS: MAGNESIUM SULFATE 20 GM/500 ML 500 ML IV SCH (02:47)
--- NOTE | 2018-08-28 07:48 | QN ---
Documentation Comment s/p c/s. POD # 1 Subjective: no complaint Objective: Afebrile, VSS NAD A&O Abdomen: soft, appropriate tender Incision: no sign of bleeding/infection mild lochia Extremity: 1+ edema bilaterally Assessment: S/p C/S Preeclampsia. it seems like she turned the corner and she is improving. her BPs initially after c/s were elevated to severe range, but her BPs normalized. Recovering Well Plan: current care SCARLETT THOMAS MD Aug 28, 2018 07:48
[2018-08-28] MEDS: SENNA/DOCUSATE NA (8.6MG/50MG) TAB PO SCH ×2 (09:00→21:14)
[2018-08-28] MEDS: NIFEdipine (XL) 60 MG TAB PO SCH ×2 (09:31→21:14)
[2018-08-28] MEDS ORDERED: ONDANSETRON 4 MG INJ IV PRN (13:00)
[2018-08-28] MEDS: IBUPROFEN 600 MG TAB PO SCH ×2 (18:12→23:52)
[2018-08-29 00:01] VITALS: BP 119/74; PULSE 79; RESP 18
[2018-08-29 04:09] VITALS: BP 108/71; PULSE 88; RESP 18
[2018-08-29] MEDS: IBUPROFEN 600 MG TAB PO SCH ×4 (05:41→23:38)
[2018-08-29 08:00] VITALS: BP 110/68; PULSE 105; RESP 18
--- NOTE | 2018-08-29 08:50 | CONS ---
Date/Time of Note Date/Time of Note DATE: 08/29/18 TIME: 08:50 Assessment/Plan Assessment/Plan Result Diagram: 08/28/18 0612 08/27/18 1648 Consultation Date/Type/Reason Admit Date/Time Aug 24, 2018 at 15:20 Initial Consult Date Type of Consult Anesthesiology Reason for Consultation follow up 24 HR Interval Summary Free Text/Dictation Pt seen and examined at bedside on 08/28/18 was POD#1 s/p repeat c/s. Pt received spinal duramorph for post-op pain control. She had no n/v/numbness in extremities. Exam/Review of Systems Vital Signs Vitals Vital Signs Date Temp Pulse Resp B/P (MAP) Pulse Ox O2 O2 Flow FiO2 Time Delivery Rate 08/29/18 98.2 88 18 108/71 Room Air 04:09 (83) 08/28/18 96 11:51 Intake and Output 08/28/18 08/28/18 08/29/18 1515:00 23:00 07:00 IntakeIntake Total 635 ml OutputOutput Total 2050 ml 600 ml BalanceBalance -1415 ml -600 ml Medications Medications Current Medications Ibuprofen (Motrin) 600 mg Q6 PO Last administered on 08/29/18at 05:41; Admin Dose 600 MG; Start 08/28/18 at 18:00 Acetaminophen/ Hydrocodone Bitart ([place] (5/325)) 1 tab Q4H PRN PO PAIN LEVEL 1-5 Last administered on 08/28/18at 21:59; Admin Dose 1 TAB; Start 08/27/18 at 13:00 Acetaminophen/ Hydrocodone Bitart ([place] (5/325)) 2 tab Q4H PRN PO PAIN LEVEL 6-10 Last administered on 08/28/18at 14:08; Admin Dose 2 TAB; Start 08/27/18 at 13:00 Ondansetron HCl (Zofran Inj) 4 mg Q6H PRN IV NAUSEA AND/OR VOMITING; Start 08/28/18 at 13:00 Ondansetron HCl (Zofran Tab) 4 mg Q6H PRN PO NAUSEA AND/OR VOMITING; Start 08/27/18 at 13:00 Diphenhydramine HCl (Benadryl) 25 mg Q6H PRN PO PRURITUS; Start 08/27/18 at 13:00 Senna/Docusate Sodium (Senokot-S) 1 tab BID PO Last administered on 08/28/18at 21:14; Admin Dose 1 TAB; Start 08/27/18 at 21:00 Senna/Docusate Sodium (Senokot-S) 1 tab BID PRN PO CONSTIPATION; Start 08/27/18 at 13:00 Magnesium Hydroxide (Milk Of Mag) 30 ml Q12H PRN PO CONSTIPATION; Start 08/27/18 at 13:00 Sodium Biphosphate/ Sodium Phosphate (Fleet Enema) 133 ml DAILY PRN [place] CONSTIPATION; Start 08/27/18 at 13:00 Witch Mee/ Glycerin (Tucks Pads) 1 pad BEDSIDE MEDICATION PRN [place] HEMORRHOID/EPISIOTMY PAIN; Start 08/27/18 at 13:00 Benzocaine (Dermoplast [place]) 1 spray BEDSIDE MEDICATION PRN TOP HEMORRHOID/EPISIOTMY PAIN; Start 08/27/18 at 13:00 Dibucaine (Nupercainal) 1 applic BEDSIDE MEDICATION PRN TOP HEMORRHOID/EP ISIOTMY PAIN; Start 08/27/18 at 13:00 Lanolin (Lanolin Hpa) 1 applic BEDSIDE MEDICATION PRN TOP BEDSIDE FOR SAMI TO NIPPLES; Start 08/27/18 at 13:00 Measles/Mumps/ Rubella Vaccine Live (Mmr Ii Vaccine) 0.5 ml ONCE ONCE SC* ; Start 08/29/18 at 09:00; Stop 08/29/18 at 09:01 Diphtheria/ Tetanus/Acell Pertussis (Adacel) 0.5 ml ONCE ONCE IM* ; Start 08/29/18 at 09:00; Stop 08/29/18 at 09:01 Varicella Virus Vaccine Live (Varivax Vaccine With Diluent) 1,350 unit ONCE ONCE SC* ; Start 08/29/18 at 09:00; Stop 08/29/18 at 09:01 Oxytocin/Lactated Ringer's 500 ml @ 0 mls/hr ONCE PRN IV VAGINAL BLEEDING; Start 08/27/18 at 13:00 Carboprost Tromethamine (Hemabate) 250 mcg ONCE PRN IM VAGINAL BLEEDING; Start 08/27/18 at 13:00 Misoprostol (Cytotec) 1,000 mcg ONCE PRN [place] VAGINAL BLEEDING; Start 08/27/18 at 13:00 Labetalol HCl (Normodyne) 200 mg Q8H PRN PO SBP > 140 or DBP> 90 Last administered on 08/27/18at 15:44; Admin Dose 200 MG; Start 08/27/18 at 13:00 Hydralazine HCl (Apresoline) 50 mg Q8H PRN NGT SBP > 155 or DBP > 100 Last administered on 08/27/18at 15:12; Admin Dose 50 MG; Start 08/27/18 at 13:00 Nifedipine (Procardia Xl) 60 mg BID PO Last administered on 08/28/18at 21:14; Admin Dose 60 MG; Start 08/27/18 at 21:00 JOSSIE SIEGEL Aug 29, 2018 08:50
[2018-08-29] MEDS ORDERED: DIPHTH/TET/ACEL PERTUSS (ADULT) 0.5 ML VIAL IM* ONE (09:00)
[2018-08-29] MEDS ORDERED: VARICELLA VACCINE LIVE/PF 1,350 UNIT/0.5 ML ML SC* ONE (09:00)
[2018-08-29] MEDS ORDERED: MEASLES,MUMPS,RUBELLA VACCINE INJ SC* ONE (09:00)
[2018-08-29] MEDS: NIFEdipine (XL) 60 MG TAB PO SCH (09:09)
[2018-08-29] MEDS: SENNA/DOCUSATE NA (8.6MG/50MG) TAB PO SCH ×2 (09:09→21:00)
[2018-08-29 16:10] VITALS: BP 113/69; PULSE 100; RESP 20
[2018-08-29 16:19] VITALS: BP 113/69; PULSE 100; RESP 18
--- NOTE | 2018-08-29 20:09 | QN ---
Documentation Comment s/p c/s Subjective: no complaint Objective: Afebrile, VSS NAD A&O Abdomen: soft, appropriate tender Incision: no sign of bleeding/infection mild lochia Extremity: 1+ edema bilaterally Assessment: S/p C/S PIH resolving Recovering Well Plan: current care SCARLETT THOMAS MD Aug 29, 2018 20:09
[2018-08-29 20:30] VITALS: BP 118/82; PULSE 91; RESP 18
[2018-08-30 03:59] VITALS: BP 118/82; PULSE 95; RESP 18
[2018-08-30] MEDS: IBUPROFEN 600 MG TAB PO SCH ×4 (05:50→23:45)
[2018-08-30 08:10] VITALS: BP 116/74; PULSE 91; RESP 16
[2018-08-30] MEDS: SENNA/DOCUSATE NA (8.6MG/50MG) TAB PO SCH ×2 (09:07→23:45)
--- NOTE | 2018-08-30 13:28 | DS ---
Date/Time of Note Date/Time of Note DATE: 08/30/18 TIME: 13:24 Obstetrical Discharge Record Final Diagnosis Final Diagnosis: delivered Other Final Diagnosis she was admitted due to variable decelerations, Preeclampsia and IUGR. she had recurrent prolonged decelerations requiring delivery. she initially had worsening BPs , but then she improved and remained with normal BPS. she passed gas. she is tolerating regular diet, ambulating well and good pain control on oral pain meds. Section Section: Repeat Complications Preg induced Hypertension Augmentation: No Induction: No Tocolytics: Magnesium Sulfate Rupture of Membranes: No Condition on Discharge Physical Assessment Voiding: Yes Bowel Movement: Yes Breast: Soft, non-tender, Filling Fundus: Firm Abdomen and Incision: soft, appropriate tenderness. incision is intact and no sign of infection Calf Tenderness: No Patient Condition: Good SCARLETT THOMAS MD Aug 30, 2018 13:28
[2018-08-30 16:05] VITALS: BP 118/76; PULSE 92; RESP 20
[2018-08-30 20:15] VITALS: BP 133/91; PULSE 89; RESP 19
[2018-08-31 05:12] VITALS: BP 142/101; PULSE 61; RESP 19
[2018-08-31] MEDS: LABETALOL 200 MG TAB PO PRN (05:12)
[2018-08-31] MEDS: IBUPROFEN 600 MG TAB PO SCH ×2 (05:51→12:07)
[2018-08-31 05:55] VITALS: BP 133/85; PULSE 66; RESP 19
[2018-08-31 07:45] VITALS: BP 127/84; PULSE 80; RESP 18
[2018-08-31] MEDS: SENNA/DOCUSATE NA (8.6MG/50MG) TAB PO SCH (09:00)
== END 2018-08-31 14:52 | disposition home or self-care (01) | DRG 787 ==
LOC: OBT 12:23 → L-D 12:23 → OBT 15:20 → L-D 15:20 → PP1 08-27 20:39
PROVIDERS: ADMIT Specialist; ATTEND Specialist
PROC: 10D00Z1 Extraction of Products of Conception, Low, Open Approach (ICD-10-PCS; principal; 2018-08-27 13:45)
DX: O76 Abnormality in fetal heart rate and rhythm complicating labor and delivery (principal); N39.0 Urinary tract infection, site not specified; O23.43 Unspecified infection of urinary tract in pregnancy, third trimester; O14.94 Unspecified pre-eclampsia, complicating childbirth; O34.219 Maternal care for unspecified type scar from previous cesarean delivery; O36.5930 Maternal care for other known or suspected poor fetal growth, third trimester, not applicable or unspecified; Z3A.32 32 weeks gestation of pregnancy; Z37.0 Single live birth
CPT/HCPCS: 36415; 36600; 76815; 76818; 76820; 80053; 81001; 82575; 82803; 83735; 84156; 84560; 85025; 85610; 85730; 86850; 86900; 86901; 87340; 88307; 99464; G0463; J0690; J0702; J1885; J2405; J2590; J2765; J3010; J3475; J7120